=== PATIENT | male | born 1970 | race African-American/Black ===

== ENCOUNTER 2018-11-17 07:47 | Emergency (ER) | payer MEDICAID, OTHER ==
[~2018-11-17] VITALS: Ht 180.3 cm; Wt 90.2 kg
[~2018-11-17 07:47] MED LIST: BIKTARVY PO; FAMO-96 PO
[2018-11-17 07:53] VITALS: Ht 180.3 cm; Wt 90.2 kg
[2018-11-17] MEDS ORDERED: BELLADONNA/PHENOBARBITAL TAB PO STA (09:37)
[2018-11-17] MEDS ORDERED: LIDOCAINE/MYLANTA 40 ML BTL PO STA (09:37)
[2018-11-17] MEDS ORDERED: KETOROLAC 60 MG INJ IM STA (09:51)
[2018-11-17] MEDS ORDERED: OMEP20CA16 PO (10:15)
[2018-11-17] MEDS ORDERED: LORA10TA3 PO (10:16)
[2018-11-17 10:24] VITALS: BP 138/88; PULSE 75; RESP 20
--- NOTE | 2018-11-18 13:45 | ERD ---
ER Documentation Chief Complaint Chief Complaint abdominal pain with n/v and bloating HPI This is a 48-year-old male with a known history of gastroesophageal reflux disease. The patient recently had been treated for H. pylori. The patient indicates that he has been dealing with this for over 5 years. The patient was recently seen and evaluated by the GI physician Dr. Dsouza. He had an outpatient abdominal ultrasound performed yesterday. The patient is on multiple antacids. He states however that his retrosternal burning pain and bloating has worsened in the past several days. He is scheduled for an upper endoscopy and colonoscopy on January 10, 2019. His main reason for coming to the emergency department as he states he would like to attempt to move this procedure to a sooner date. He denies any chest pain or pressure. He has had no nausea vomiting or diarrhea. He has no shortness of breath at rest or exertion. ROS All systems reviewed and are negative except as per history of present illness. Medications Home Meds Reported Medications Loratadine* (Loratadine*) 10 Mg Tablet, 10 MG PO DAILY, #30 TAB 11/17/18 Omeprazole* (Omeprazole*) 20 Mg Capsule.dr, 20 MG PO DAILY, #30 CAP 11/17/18 [Biktarvy] No Conflict Check, 1 TAB PO DAILY 07/27/18 Discontinued Scripts Famotidine* (Pepcid*) 20 Mg Tablet, 20 MG PO BID for 14 Days, TAB Prov:KELVIN CHAVEZ MD 07/27/18 Allergies Allergies: Coded Allergies: Sulfa (Sulfonamide Antibiotics) (Verified Allergy, Unknown, 11/17/18) PMhx/Soc Hx Alcohol Use: Yes (occassionally) Hx Substance Use: No Hx Tobacco Use: No Smoking Status: Never smoker Physical Exam Vitals Vital Signs Date Temp Pulse Resp B/P (MAP) Pulse Ox O2 O2 Flow FiO2 Time Delivery Rate 11/17/18 98.0 75 20 138/88 98 Room Air 10:24 (105) 11/17/18 98.1 100 18 176/99 100 07:53 (124) Physical Exam Constitutional:Well-developed. Well-nourished. Respiratory: Not using accessory muscles of respiration.Lungs were clear to auscultation bilaterally. No rhonchi. No rales. No wheezing. Cardiovascular: Regular rate regular rhythm.No murmurs. No rubs were appreciated.S1, S2 normal. Distal pulses are palpable 2+ bilaterally. GI: Abdomen was soft. Nontender. Non Distended. No pulsatile abdominal masses or bruits. No rebound. No guarding. Bowel sounds were present and normal. NEURO: Patient was alert, awake, orientated x3. Results 24 hrs Current Medications Medications Dose Sig/Tiesha Start Time Status Last (Trade) Ordered Route PRN Stop Time Admin Dose Reason Admin 40 ml ONCE STAT 11/17/18 DC 11/17/18 Miscellaneous PO 09:37 09:49 Medication 11/17/18 09:38 (Gi Cocktail (2)) Belladonna/ 2 tab ONCE STAT 11/17/18 DC 11/17/18 Phenobarbital PO 09:37 09:49 () 11/17/18 09:38 Ketorolac 60 mg ONCE STAT 11/17/18 DC 11/17/18 Tromethamine IM 09:51 09:59 (Toradol) 11/17/18 09:52 Procedures/MDM This is a 48-year-old male with a known history of gastroesophageal reflux disease. The patient reason for coming to the emergency department today was to receive a GI cocktail in addition for help and support in order to move his outpatient upper endoscopy and colonoscopy to a sooner date. I placed a call and spoke with the GI physician Dr. Swift again. He indicated that the patient can call their office number to arrange for a sooner date as they were just waiting on authorization from his insurance. The patient was refusing all ancillary laboratory work or radiographic imaging as he states this medical condition has been present for over several years. He will however receive a GI cocktail which he stated did improve his symptoms. He also received a Toradol injection as he states this has improved his symptoms in the past. The patient was discharged home in fair condition. They were instructed to return to the emergency department at any time if there was any worsening of their condition. The patient stated they would follow up with their PCP in the next 24-48 hours to initiate a suitable medication regimen under the care of their PCP as well as to allow their PCP to monitor any drug reactions. The patient was discharged home with prescriptions after they gave informed consent to the new medication. They were also fully informed by myself on the adverse effects and adverse drug interactions in order to provide adequate safeguards to prevent possible adverse reactions to medications. Departure Diagnosis: Primary Impression: GERD (gastroesophageal reflux disease) Esophagitis presence: esophagitis presence not specified Qualified Codes: K21.9 - Gastro-esophageal reflux disease without esophagitis Condition: Fair Patient Instructions: Gerd (Adult) Referrals: LOVE HUERTA MD (PCP) JACLYN SPENCER MD Nov 18, 2018 13:45
== END 2018-11-17 10:38 | disposition home or self-care (01) ==
LOC: E/R 07:47
DX: K21.9 Gastro-esophageal reflux disease without esophagitis (principal)
CPT/HCPCS: 96372; J1885; Z7502; Z7610